=== PATIENT | female | born 1995 | race Two or more races ===

== ENCOUNTER 2016-10-28 21:26 | Emergency (ER) | payer OTHER ==
[~2016-10-28] VITALS: Ht 188 cm; Wt 99.8 kg
[~2016-10-28 21:26] MED LIST: ALLEGRA ALLERGY60 M1 PO; ENSKYCE1 EACH PO; FEOSOL325 MG ORAL; LEVAQUIN500 MG ORAL; PERMETHRIN60 GM TOPIC
--- NOTE | 2016-10-28 22:12 | Emergency Room Report ---
History of Present Illness General Chief Complaint: Skin Rash/Abscess Source: Patient Present Illness HPI Patient presents with left-sided gum abscess for a few days. It is more bothersome than painful. Denies any fevers. She reports 7/10 pain to RN but states this is not important to her. Tried hydrogen peroxide but this made her gag. No other medications taken. No h/o diabetes. Able to eat. No facial pain. No MICHELLE, CP, URI sy, dyspnea, dysuria. She states she is not now. Had MRSA in past. Allergies: Coded Allergies: No Known Allergies (Unverified , 11/14/14) Patient History Past Medical History: see triage record Social History: Denies: smoking Social History Narrative with Mom Last Menstrual Period: 10/28/16 Now: No Reviewed Nursing Documentation: PMH: Agreed, PSxH: Agreed Nursing Documentation-PMH Past Medical History: No Stated History Hx Cardiac Problems: No Hx Cancer: No Hx Gastrointestinal Problems: No Hx Neurological Problems: No Review of Systems All Other Systems: negative except mentioned in HPI Physical Exam Vital Signs Date Time Temp Pulse Resp B/P Pulse Ox O2 Delivery O2 Flow Rate FiO2 10/28/16 22:03 98.1 91 16 122/76 100 Room Air Sp02 EP Interpretation: reviewed, normal General Appearance: well appearing, no apparent distress Head: normocephalic, atraumatic Eyes: bilateral eye PERRL ENT: normal pharynx, moist mucus membranes, other - gum abscess L upper < 1 cm and pointing No facial swelling Neck: full range of motion, supple Respiratory: no respiratory distress, speaking full sentences Musculoskeletal: digits/nails normal, gait/station normal, normal range of motion Neurologic: alert, normal gait, grossly normal Psychiatric: mood/affect normal - but anxious about possible cutting Skin: no rash Medical Decision Making Diagnostic Impression: Primary Impression: Gum abscess ER Course Patient with gum abscess. This is a clinical diagnosis. I offered to cut and drain this. She was against this plan. Patient given antibiotics. Offered to have her return if she changed her mind. Patient stable for outpatient observation and treatment. Patient offered to odette. She declines and wants to try antibiotics first. Patient stable for outpatient observation and treatment. Last Vital Signs Date Time Temp Pulse Resp B/P Pulse Ox O2 Delivery O2 Flow Rate FiO2 10/28/16 22:30 98.1 89 16 122/76 100 Room Air Status: improved Disposition: HOME, SELF-CARE Condition: Improved Scripts Amoxicillin* (AMOXIL*) 500 Mg Capsule 500 MG ORAL EVERY 8 HOURS, #21 CAP Prov: Mark Levine M.D. 10/28/16 Mark Levine M.D. Oct 28, 2016 22:12
[2016-10-28] MEDS ORDERED: AMOXICILLIN500 MG ORAL (22:14)
[2016-10-28 22:22] VITALS: BP 122/76
[2016-10-28 22:30] VITALS: BP 122/76
== END 2016-10-28 22:30 | disposition home or self-care (01) ==
LOC: EMR 22:12
DX: K05.219 Aggressive periodontitis, localized, unspecified severity (principal)
CPT/HCPCS: 99283

== ENCOUNTER 2016-11-17 15:07 | Emergency (ER) | payer OTHER ==
[~2016-11-17] VITALS: Ht 188 cm; Wt 98.9 kg
[~2016-11-17 15:07] MED LIST changes: +AMOXICILLIN500 MG ORAL
[2016-11-17 15:34] VITALS: BP 125/79
--- NOTE | 2016-11-17 15:35 | Emergency Room Report ---
History of Present Illness General Chief Complaint: Pain Source: Patient Present Illness HPI 21 YO Female presents to the ED c/o : Tooth pain x 2 days 10/10 in severity, localized to left upper molar. pain is described as progressive, with hx of gum abscess last month, pt. told by her dentist recently that she has an infected root of her tooth that requires dental surgery. Pt reprots that last month she declined I & D of the gum abscess and symptoms resolved with oral abx, however symptoms have begun to return. Pt. discussed cost for surgery, however is currently in between dental insurances at the moment. denies fevers/chills, neck pain, MICHELLE, inability to swallow, or changes to voice. Denies CP, Palpitations, LOC, AMS, dizziness, Changes in Vision, Sensation, paresthesias, or a sudden severe headache. Allergies: Coded Allergies: No Known Allergies (Unverified , 11/14/14) Patient History Past Medical History: see triage record Past Surgical History: none Pertinent Family History: none Now: No Immunizations: UTD Reviewed Nursing Documentation: PMH: Agreed, PSxH: Agreed Nursing Documentation-PMH Past Medical History: No Stated History Hx Cardiac Problems: No Hx Cancer: No Hx Gastrointestinal Problems: No Hx Neurological Problems: No Review of Systems All Other Systems: negative except mentioned in HPI Physical Exam Vital Signs Date Time Temp Pulse Resp B/P Pulse Ox O2 Delivery O2 Flow Rate FiO2 11/17/16 15:11 98.1 91 20 130/74 100 Room Air Sp02 EP Interpretation: reviewed, normal General Appearance: no apparent distress, alert, GCS 15, non-toxic Head: normocephalic, atraumatic Eyes: bilateral eye PERRL, bilateral eye normal inspection ENT: hearing grossly normal, normal pharynx, no angioedema, normal voice, TMs + canals normal, uvula midline, other - Tenderness to percussion of tooth number 15 ( left upper molar) there is no fluctuance palpated to the gumline, erythema about the tooth noted, no evidence of structural compromise, temporary filling noted. Neck: full range of motion, supple/symm/no masses Respiratory: lungs clear, normal breath sounds, speaking full sentences Cardiovascular #1: regular rate, rhythm, no edema Musculoskeletal: back normal, gait/station normal, normal range of motion, non- tender Neurologic: alert, oriented x3, responsive, motor strength/tone normal, sensory intact, speech normal Psychiatric: judgement/insight normal, memory normal, mood/affect normal, no suicidal/homicidal ideation Skin: normal color, no rash, warm/dry, well hydrated Lymphatic: no adenopathy Medical Decision Making PA Attestation Dr. Rader is my supervising Physician whom patient management has been discussed with. Diagnostic Impression: Primary Impression: Gum abscess Additional Impression: H/O dental abscess ER Course Pt. presents to the ED c/o : Tooth pain x 2 days , progressive, with hx of gum abscess last month, pt. told by dentis that she has an infected root of her tooth that requires dental surgery. Ddx considered but are not limited to:tooth abscess, tooth avulsion,pulpitis, ANCHOR TACKER, Felix angina, cellulitis Vital signs: are WNL, pt. is afebrile H&PE are most consistent with: Tooth infection/ pulpitis with recent hx of gum abscess and dental abscess Tenderness to percussion of tooth number 15 ( left upper molar) there is no fluctuance palpated to the gumline, erythema about the tooth noted, no evidence of structural compromise, temporary filling noted. ORDERS: None required at this time as the diagnosis is clinical ED INTERVENTIONS: Laurel PO - D/W pt. the importance of follow up with her Dentist or PCP for further pain management and ultimately treatment. d/w pt to return with worsening or new symptoms that would indicate progression of infection. DISCHARGE: At this time pt. is stable for d/c to home. Will provide printed patient care instructions, and any necessary prescriptions. Care plan and follow up instructions have been discussed with the patient prior to discharge. Last Vital Signs Date Time Temp Pulse Resp B/P Pulse Ox O2 Delivery O2 Flow Rate FiO2 11/17/16 15:11 98.1 91 20 130/74 100 Room Air Disposition: HOME, SELF-CARE Condition: Stable Scripts Hydrocodone Bit/Acetaminophen 5-325* (NORCO 5-325*) 1 Each Tablet 1 TAB ORAL Q6H Y for For Pain, #5 TAB 0 Refills Prov: Demi Patterson P.A. 11/17/16 Acetaminophen* (TYLENOL EXTRA STRENGTH*) 500 Mg Tablet 500 MG ORAL Q6H, #30 TAB 0 Refills Prov: Demi Patterson P.A. 11/17/16 Amoxicillin* (AMOXIL*) 500 Mg Capsule 500 MG ORAL EVERY 8 HOURS for 7 Days, #21 CAP Prov: Demi Patterson 11/17/16 Patient Instructions: Dental Abscess, [id number], Dental Pain Additional Instructions: Take medications as directed. Follow up with your DENTIST and PCP in 3-5 days Return sooner to ED if new symptoms occur, or current symptoms become worse. Do not drink alcohol, drive, or operate heavy machinery while taking Laurel as this may cause drowsiness. - Please note that this Emergency Department Report was dictated using [employer] management specialist technology software, occasionally this can lead to erroneous entry secondary to interpretation by the dictation equipment. Deim Patterson Nov 17, 2016 15:35
[2016-11-17] MEDS ORDERED: Norco 7.5mg/325mg tab ORAL ONE (15:45)
[2016-11-17] MEDS ORDERED: TYLENOL EXTRA500 MG ORAL (16:12)
[2016-11-17] MEDS ORDERED: NORCO 5-325 TA1 EACH ORAL (16:12)
[2016-11-17] MEDS ORDERED: AMOXICILLIN500 MG ORAL (16:12)
[2016-11-17 16:30] VITALS: BP 121/75
[2016-11-17 16:31] VITALS: BP 121/75
== END 2016-11-17 16:31 | disposition home or self-care (01) ==
LOC: EMR 16:16
DX: K05.219 Aggressive periodontitis, localized, unspecified severity (principal)
CPT/HCPCS: 99284

== ENCOUNTER 2017-03-30 00:56 | Emergency (ER) | payer OTHER ==
[~2017-03-30] VITALS: Ht 188 cm; Wt 102.1 kg
[~2017-03-30 00:56] MED LIST changes: +NORCO 5-325 TA1 EACH ORAL; +TYLENOL EXTRA500 MG ORAL
[2017-03-30] MEDS ORDERED: Tetanus/Diptheria/Pertussis Vaccine 0.5ml Syr IM ONE (01:30)
[2017-03-30] MEDS ORDERED: Lidocaine 1% Plain 30 ml INJ ONE (01:45)
[2017-03-30] MEDS ORDERED: Bacitracin Oint UD TOPIC ONE (02:21)
[2017-03-30 02:34] VITALS: BP 110/70
--- NOTE | 2017-03-30 04:08 | Emergency Room Report ---
History of Present Illness General Chief Complaint: Laceration Source: Patient Present Illness HPI 21-year-old female presents ED status post laceration to the left arm. States that she was "playing" with a knife in her room tonight and cut herself accidentally. Was not try to hurt herself. Presents with a laceration to left forearm. Tetanus unknown. pain is a 5/10, throbbing, nonradiating. Denies any other injuries. No other aggravating relieving factors. Denies any other associated symptoms Allergies: Coded Allergies: No Known Allergies (Unverified , 03/30/17) Patient History Past Medical History: none Past Surgical History: none Pertinent Family History: none Social History: Denies: alcohol use, drug use, smoking Last Menstrual Period: 03/28/17 Now: No Immunizations: UTD Reviewed Nursing Documentation: PMH: Agreed, PSxH: Agreed Nursing Documentation-PMH Past Medical History: No Stated History Hx Cardiac Problems: No Hx Cancer: No Hx Gastrointestinal Problems: No Hx Neurological Problems: No Review of Systems All Other Systems: negative except mentioned in HPI Physical Exam Vital Signs Date Time Temp Pulse Resp B/P Pulse Ox O2 Delivery O2 Flow Rate FiO2 03/30/17 01:07 98.2 91 22 109/71 100 Room Air Sp02 EP Interpretation: reviewed, normal General Appearance: no apparent distress, alert, GCS 15, non-toxic Head: normocephalic Eyes: bilateral eye PERRL, bilateral eye normal inspection ENT: normal ENT inspection Neck: normal inspection Respiratory: normal inspection Cardiovascular #1: normal inspection Gastrointestinal: normal inspection Rectal: deferred Genitourinary: no CVA tenderness Musculoskeletal: back normal, gait/station normal, normal range of motion Neurologic: alert, oriented x3, responsive, motor strength/tone normal, sensory intact, speech normal Psychiatric: normal inspection Skin: laceration - 4cm laceration to L forearm. subcutaneous fat noted Lymphatic: normal inspection Procedures Laceration/Wound Repair Laceration/Wound Repair : Consent: Emergent Wound Location: upper extremity - L forearm Wound's Depth, Shape: linear Wound Explored: clean Betadine Prep?: Yes Anesthesia: 1% Lidocaine Wound Debrided: minimal Wound Repaired With: sutures Suture Size/Type: 3:0, proline Layer Closure?: No Sterile Dressing Applied?: Yes Splint Applied?: No Sling Applied?: No Patient Tolerated: Well Complications: None Medical Decision Making Diagnostic Impression: Primary Impression: Laceration ER Course Hospital Course 21-year-old F presents to ED s/p laceration L forearm using knife Clinical course Patient placed on stretcher. After initial history and physical I ordered tetanus shot. Anesthesia provided with lidocaine. Laceration repaired w/o complication. Dressing applied. Diagnosis - laceration Stable and discharged to home. wound Care instructions given. Followup with PMD in 7-10 days for suture removal. Return to ED if any signs of infection develop Last Vital Signs Date Time Temp Pulse Resp B/P Pulse Ox O2 Delivery O2 Flow Rate FiO2 03/30/17 02:34 98.2 68 22 110/70 100 Room Air Status: improved Disposition: HOME, SELF-CARE Condition: Stable Referrals: NON PHYSICIAN (PCP) Patient Instructions: Laceration Care, Adult Additional Instructions: return to ED in 7-10 days for suture removal. return to ED FLORI if any signs of infection develop RENU GUZMAN M.D. Mar 30, 2017 04:08
== END 2017-03-30 02:38 | disposition home or self-care (01) ==
LOC: EMR 01:26
DX: S51.812A Laceration without foreign body of left forearm, initial encounter (principal); W26.0XXA Contact with knife, initial encounter; Y92.89 Other specified places as the place of occurrence of the external cause; Z23 Encounter for immunization
CPT/HCPCS: 12002; 90471; 90715; 99284; J2001

== ENCOUNTER 2017-04-06 10:32 | Emergency (ER) | payer OTHER ==
[~2017-04-06] VITALS: Ht 188 cm; Wt 102.1 kg
[2017-04-06] MEDS ORDERED: NKM (10:39)
[2017-04-06 10:47] VITALS: BP 115/70
[2017-04-06 11:12] VITALS: BP 115/70
--- NOTE | 2017-04-06 14:20 | Emergency Room Report ---
History of Present Illness General Chief Complaint: Wound Recheck/Suture Removal Source: Patient Present Illness HPI 21-year-old female presents ED for suture removal. Patient had laceration to left forearm and had sutures placed on 03/30. Is here to have the sutures removed. Denies any pain. States it is healing without difficulty. No fevers or chills. No aggravating relieving factors. Denies any other associated symptoms Allergies: Coded Allergies: No Known Allergies (Unverified , 03/30/17) Patient History Past Medical History: none Past Surgical History: none Pertinent Family History: none Social History: Denies: smoking, alcohol use, drug use Last Menstrual Period: 04/03/17 Now: No Immunizations: UTD Reviewed Nursing Documentation: PMH: Agreed, PSxH: Agreed Nursing Documentation-PMH Past Medical History: No Stated History Hx Cardiac Problems: No Hx Cancer: No Hx Gastrointestinal Problems: No Hx Neurological Problems: No Review of Systems All Other Systems: negative except mentioned in HPI Physical Exam Vital Signs Date Time Temp Pulse Resp B/P (MAP) Pulse Ox O2 Delivery O2 Flow Rate FiO2 04/06/17 10:36 97.9 86 16 115/70 100 Room Air Sp02 EP Interpretation: reviewed, normal General Appearance: no apparent distress, alert, GCS 15, non-toxic Head: normocephalic Eyes: bilateral eye normal inspection, bilateral eye PERRL ENT: normal ENT inspection Neck: normal inspection Respiratory: normal inspection Cardiovascular #1: normal inspection Gastrointestinal: normal inspection Rectal: deferred Genitourinary: no CVA tenderness Musculoskeletal: normal inspection Neurologic: alert, oriented x3, responsive, motor strength/tone normal, sensory intact, speech normal Psychiatric: judgement/insight normal, memory normal, mood/affect normal, no suicidal/homicidal ideation Skin: laceration - L forearm wound healing. well approximated with sutures. C/D /I Lymphatic: normal inspection Medical Decision Making Diagnostic Impression: Primary Impression: Encounter for removal of sutures ER Course Patient presents to the emergency department today for suture removal. patient' s wound appears well-healed, and sutures are ready to be removed today. Using sterile technique the sutures were removed patient tolerated procedure well without any difficulty. Patient was given device in how to care for the wound patient is advised followup with his private care doctor in 2-3 days and return to emergency room for any worsening conditions as needed Last Vital Signs Date Time Temp Pulse Resp B/P (MAP) Pulse Ox O2 Delivery O2 Flow Rate FiO2 04/06/17 11:12 97.9 16 115/70 100 Room Air 04/06/17 10:36 86 Status: improved Disposition: HOME, SELF-CARE Condition: Stable Referrals: NON PHYSICIAN (PCP) Patient Instructions: Suture Removal, Care After RENU GUZMAN M.D. Apr 06, 2017 14:19
== END 2017-04-06 11:07 | disposition home or self-care (01) ==
LOC: EMR 10:55
DX: S51.812D Laceration without foreign body of left forearm, subsequent encounter (principal); Z48.02 Encounter for removal of sutures
CPT/HCPCS: 99282